=== PATIENT | male | born 1945 | race Hispanic/Latino ===

== ENCOUNTER 2018-03-02 18:23 | Emergency (ER) | payer OTHER, MEDICARE ==
[~2018-03-02] VITALS: Ht 170.2 cm; Wt 90.3 kg
--- NOTE | 2018-03-02 19:12 | ED GENERAL ADULT ---
History of Present Illness General Chief Complaint: Fever Stated Complaint: FEVER/"SHAKES"/ SORE THROAT Source: patient, family Exam Limitations: no limitations Allergies Uncoded Allergies: Food Allergies NKA Med Allergies DENIES Reconcile Medications Azithromycin (Zithromax) 250 MG TABLET 1 DP PO AD COPD 2 the first day followed by 1 for days 2-5 Methylprednisolone. (Medrol) 4 MG TAB.DS.PK 1 DP PO AD COPD 6 on day 1 then reduce by one tablet daily until gone Triage Note: 72M WITH COUGH, BODY ACHES, SORE THROAT, SLIGHT SOB WITH HX COPD. O2 SAT 90% ON ROOM AIR IN TRIAGE, IMPROVED TO 95% WITH DEEP INSPIRATION. LUNG SOUNDS DIMINISHED. AFEBRILE. DENIES CP. HAD FLU SHOT. Triage Nurses Notes Reviewed? yes Onset: Gradual Duration: week(s): (1-2) Timing: recent history Injury Environment: home Severity: moderate HPI: Patient is a 72-year-old male with history of COPD, hypertension, hyperlipidemia , acid reflux presenting to the emergency Department chief complaint of sore throat, body aches, malaise, tactile fevers and chills worsened today. Patient reports that he was interlocking about a week or 2 ago for strep throat, put on antibiotics his symptoms return. Patient has been using inhalers at home with little relief. Denies chest pain. No abdominal pain. No nausea or vomiting. No diarrhea. Denies urinary frequency or urgency or dysuria. (Tammy Kohli) Vital Signs & Intake/Output Vital Signs & Intake/Output ED Intake and Output 04/ 0000 04 1200 Intake Total 0 Output Total Balance 0 Intake, Oral 0 Patient 199 lb Weight Weight Reported by Patient Measurement Method (Dashawn Iniguez) Past History Travel History Traveled to [place] past 21 day No Medical History Any Pertinent Medical History? see below for history Cardiovascular: CAD, hypertension Respiratory: COPD Gastrointestinal: GERD Surgical History Surgical History: non-contributory Psychosocial History Who do you live with Family What is your primary language Albanian Tobacco Use: Quit >30 days ago ETOH Use: occasional use Family History Hx Contributory? No (Tammy Kohli) Review of Systems Review of Systems Constitutional: Reports: see HPI, chills, fever, malaise. Comments Review of systems: See HPI, All other systems negative. Constitutional, NO weight loss HEENT: No visual changes Cardiovascular: No chest pain ,palpitation , orthopnea or ankle swelling Skin, no jaundice no rashes Respiratory: No sputum or hemoptysis GI: No nausea no vomiting : No dysuria No hematuria Muscle skeletal: no back pain, no neck pain, Neurologic: No numbness no confusion NO MEJIA Psych: No stress anxiety or depression,. Heme/endocrine: No bruising no bleeding no polyuria or polydipsia Immunology: No splenectomy or history of AIDS (Tammy Kohli) Physical Exam Physical Exam General Appearance: well developed/nourished, no apparent distress, alert, awake , comfortable Comments: Well-developed well-nourished person in no acute distress HEENT: Pupils equally round and reactive to light and accommodation. Mild conjunctival injection bilaterally, no purulent drainage noted. Nose is atraumatic. External auditory canalS are slightly erythematous bilaterally and Tympanic membranes clear. Pharynx is moderately erythematous, no injury, no tonsillar enlargement. Uvula midline. Clearing secretions without difficulty. No swelling or edema. Neck: Supple, no lymphadenopathy, normal range of motion without pain or tenderness Back: Nontender Cardiovascular: Regular rate and rhythms no murmurs rubs or gallops Respiratory: Chest nontender. No respiratory distress.breath sounds diminished to auscultation bilaterally, with rhonchi appreciated in the left lower lobe. Abdomen: Soft, nontender nondistended, no appreciable organomegaly. Normal bowel sounds. No ascites Extremity: No edema, no calf tenderness to palpation, normal and equal pulses. Neuro: Alert oriented x3 Skin: No appreciable rash on exposed skin, skin is warm and dry. Psych: Mood and affect is normal, memory and judgment is normal. Core Measures ACS in differential dx? No CVA/TIA Diagnosis: No Sepsis Present: No Sepsis Focused Exam Completed? No (Tammy Kohli) Progress Differential Diagnoses I considered the following diagnoses in my evaluation of the patient: Pneumonia , strep, sinusitis, bronchitis, COPD exacerbation, ACS Diagnostic Imaging: Viewed by Me: Radiology Read. Discussed w/RAD: Radiology Read. Initial ED EKG: SINUS 94 BPM, BORDERLINE INFERIOR q WAVES Prior EKG: unchanged Hand-Off Endorsed To: Dashawn Iniguez Endorsed Time: 2100 Pending: labs Comments: 03/02/2018 8:16:27 PM on arrival patient is afebrile, no acute distress, oxygen saturation 90% on room air being stationary. Patient does have diffuse decreased breath sounds, scattered rhonchi noted in the left lower lobe. No abdominal pain. Patient complains of chest pain. EKG is sinus rhythm, unchanged from previous. Patient given breathing treatment, IV Solu-Medrol. So pending labs. Patient will be signed H[place] pending reevaluation and lab results. Also pending and rotatory oxygen saturation. (Elton VASQUEZ,Tammy) Plan of Care: Orders Procedure Date/time Status Add-on Test (ER Only) 03/02 1928 Active BLOOD CULTURE 03/02 1910 Active TROPONIN LEVEL 03/02 1910 Active COMPREHENSIVE METABOLIC PANEL 03/02 1910 Active CBC WITHOUT DIFFERENTIAL 03/02 1910 Active EKG 03/02 1849 Active RAPID VIRAL INFLUENZA A 03/02 1826 Complete THROAT CULTURE W/QUICK STREP 03/02 1826 Active Current Medications Sig/Bobby Start time Last Medication Dose Stop Time Status Admin Methylprednisolone 125 MG ONCE ONE 03/02 2000 UNVr (Solu Medrol) 03/02 2001 Laboratory Tests 03/02/181958: Sodium Pending, Potassium Pending, Chloride Pending, Carbon Dioxide Pending, Anion Gap Pending, BUN Pending, Creatinine Pending, BUN/Creatinine Ratio Pending , Glucose Pending, Calcium Pending, Total Bilirubin Pending, AST Pending, ALT Pending, Alkaline Phosphatase Pending, Troponin I Pending, Total Protein Pending , Albumin Pending, Globulin Pending, Albumin/Globulin Ratio Pending, CBC w Diff Pending, WBC Pending, RBC Pending, Hgb Pending, Hct Pending, MCV Pending, MCH Pending, MCHC Pending, RDW Pending, Plt Count Pending, MPV Pending Microbiology 03/02 1959 BLOOD: Blood Culture - RECD 03/02 1945 BLOOD: Blood Culture - RECD 03/02 1854 NASOPHARYN: Influenza Virus A & B Rapid Smear - COMP 2100I discussed with the patient called his labs as well as his family-the patient is 93% on room air he denies shortness of breath or chest pain The patient ambulated around the emergency room with myself he remained 93% he denies dyspnea chest pain palpitations dizziness lightheadedness. The patient feels comfortable with going home his family feels comfortable taking him home. Return precautions were discussed directly he will follow-up with his senior benefits analyst this weekDR BLADE. Return precautions were discussed at length they feel comfortable with plan cleared for discharge (Dashawn Iniguez) Departure Departure Condition: Stable Referrals: Lavonne AMES,Sundar Tineo (PCP/Family) Departure Forms: Customer Survey General Discharge Information (Tammy Kohli) Departure Time of Disposition: 2106 Disposition: HOME OR SELF CARE Clinical Impression Primary Impression: COPD exacerbation Additional Instructions: Follow-up primary care physician and senior benefits analyst this week. Medrol Dosepak Z- Kushal as directed continue taking your inhalers as prescribed. Return with any concerns Prescriptions: Current Visit Scripts Azithromycin (Zithromax) 1 DP PO AD #6 TAB 2 the first day followed by 1 for days 2-5 Methylprednisolone. (Medrol) 1 DP PO AD #1 DP 6 on day 1 then reduce by one tablet daily until gone (Dashawn Iniguez) PA/[employer] PIE MAKER Co-Sign Statement Statement: ED Attending supervision documentation- [] I saw and evaluated the patient. I have also reviewed all the pertinent lab results and diagnostic results. I agree with the findings and the plan of care as documented in the PA's/FROZEN PIE MAKER's documentation. [x] I have reviewed the ED Record and agree with the PA's/FROZEN PIE MAKER's documentation. [] Additions or exceptions (if any) to the PAs/FROZEN PIE MAKER's note and plan are summarized below: [] (John AMES,Guanaco Arreguin) Critical Care Note Critical Care Note Critical Care Time: non-applicable (Tammy Kohli)
--- NOTE | 2018-03-02 19:37 | RADIOLOGY REPORT ---
EXAMINATION: XR CHEST CLINICAL INFORMATION: Cough, fevers, low O2 sat. COMPARISON: None TECHNIQUE: 2 views of the chest were obtained. FINDINGS: No new significant abnormality is noted involving the heart, lungs, mediastinum, bony thorax or soft tissues. The previously demonstrated right lower lung consolidation is not conspicuous on current exam. IMPRESSION: No evidence of pneumonia.
[2018-03-02 20:17] LABS: ABSOLUTE BASOPHIL COUNT 0 /CUMM (0.0-0.2); ABSOLUTE EOSINOPHIL COUNT 0 /CUMM (0.0-0.7); ABSOLUTE GRANULOCYTE CT 13.7 /CUMM (1.4-6.5); ABSOLUTE LYMPH COUNT 1.3 /CUMM (1.2-3.4); ABSOLUTE MONOCYTE COUNT 0.8 /CUMM (0.10-0.60); BASOPHIL % 0.2 % (0.0-2.0); EOSINOPHIL % 0.3 % (0-5); GRANULOCYTE % 86.7 % (42.2-75.2); MEAN CORPUSCULAR HGB 28.7 PG (27.0-31.0); MEAN PLATELET VOLUME 8.4 FL (7.4-10.4); PLATELET COUNT 185 /CUMM (130-400); RED BLOOD CELL CT 5.29 /CUMM (4.70-6.10); WHITE BLOOD CELL COUNT 15.8 /CUMM (4.8-10.8)
[2018-03-02 21:08] VITALS: BP 144/66
[2018-03-02] MEDS ORDERED: MEDROL4 M2 PO (21:08)
[2018-03-02] MEDS ORDERED: ZITHROMAX250 M2 PO (21:08)
== END 2018-03-02 21:23 ==
LOC: ERH 18:23
PROVIDERS: Physician Assistant
DX: J44.1 Chronic obstructive pulmonary disease with (acute) exacerbation (principal)
CPT/HCPCS: 1263; 71046; 87040; 87804; 87804-59; 93005; 93010; 96374; J2930